=== PATIENT | male | born 1930 | race Caucasian/White ===

== ENCOUNTER 2016-06-24 04:03 | Outpatient (CLI) | payer MEDICARE, OTHER | END 2016-06-24 04:04 | disposition critical access hospital (66) | DX: M25.551 Pain in right hip (principal); S09.90XA Unspecified injury of head, initial encounter; W18.30XA Fall on same level, unspecified, initial encounter; Y92.199 Unspecified place in other specified residential institution as the place of occurrence of the external cause | CPT/HCPCS: A0425; A0427 ==

== ENCOUNTER 2016-06-24 04:19 | Inpatient (IN) | payer MEDICARE, OTHER ==
[2016-06-24] MEDS ORDERED: MORPHINE 2 MG/ML SYRINGE IVP STA (04:31)
[2016-06-24] MEDS ORDERED: MORPHINE 2 MG/ML SYRINGE ONE (05:02)
[2016-06-24] MEDS ORDERED: SODIUM CHLORIDE FLUSH 0.9% 10 ML SYRINGE IVP PRN ×2 (06:29→07:33)
[2016-06-24] MEDS ORDERED: MORPHINE 2 MG/ML SYRINGE IVP PRN (06:29)
[2016-06-24] MEDS ORDERED: ONDANSETRON 4 MG/2 ML VIAL IVP PRN ×2 (06:29→07:33)
[2016-06-24] MEDS ORDERED: NS W/20 MEQ KCL 1,000 ML IV SCH (07:00)
[2016-06-24] MEDS: NS W/20 MEQ KCL 1,000 ML IV SCH ×2 (08:34→19:32)
[2016-06-24] MEDS ORDERED: POLYETHYLENE GLYCOL 3350 17 GM PACKET PO SCH (09:00)
[2016-06-24] MEDS: MORPHINE 2 MG/ML SYRINGE IVP PRN ×5 (10:29→19:32)
[2016-06-24] MEDS: ENALAPRILAT 1.25 MG/ML VIAL IVP SCH ×3 (10:31→15:48)
[2016-06-24] MEDS: POLYETHYLENE GLYCOL 3350 17 GM PACKET PO SCH (10:31)
[2016-06-24] MEDS: SODIUM CHLORIDE FLUSH 0.9% 10 ML SYRINGE IVP SCH ×2 (13:11→21:26)
[2016-06-24] MEDS ORDERED: SODIUM CHLORIDE FLUSH 0.9% 10 ML SYRINGE IVP SCH (14:00)
[2016-06-24] MEDS ORDERED: ACETAMINOPHEN 325 MG TABLET PO PRN (15:57)
[2016-06-24] MEDS: amLODIPine 5 MG TABLET PO SCH (21:26)
[2016-06-25] MEDS: MORPHINE 2 MG/ML SYRINGE IVP PRN ×6 (00:09→23:48)
[2016-06-25] MEDS: ENALAPRILAT 1.25 MG/ML VIAL IVP SCH ×5 (00:10→23:36)
[2016-06-25] MEDS: SODIUM CHLORIDE FLUSH 0.9% 10 ML SYRINGE IVP SCH ×3 (05:53→21:36)
[2016-06-25] MEDS: amLODIPine 5 MG TABLET PO SCH (08:01)
[2016-06-25] MEDS: POLYETHYLENE GLYCOL 3350 17 GM PACKET PO SCH (08:01)
[2016-06-25] MEDS: NS W/20 MEQ KCL 1,000 ML IV SCH (08:06)
[2016-06-25] MEDS: SERTRALINE 25 MG TABLET PO SCH (08:45)
[2016-06-25] MEDS ORDERED: ACETAMINOPHEN 650 MG SUPP PR PRN (16:20)
[2016-06-25] MEDS ORDERED: FUROSEMIDE 20 MG/2 ML VIAL IVP SCH (19:00)
[2016-06-26] MEDS: ENALAPRILAT 1.25 MG/ML VIAL IVP SCH ×3 (06:11→19:21)
[2016-06-26] MEDS: MORPHINE 2 MG/ML SYRINGE IVP PRN ×3 (06:16→20:04)
[2016-06-26] MEDS: SODIUM CHLORIDE FLUSH 0.9% 10 ML SYRINGE IVP SCH ×3 (06:16→20:08)
[2016-06-26] MEDS: POLYETHYLENE GLYCOL 3350 17 GM PACKET PO SCH (08:54)
[2016-06-26] MEDS: SERTRALINE 25 MG TABLET PO SCH (08:55)
[2016-06-26] MEDS: amLODIPine 5 MG TABLET PO SCH (08:55)
[2016-06-27] MEDS: ENALAPRILAT 1.25 MG/ML VIAL IVP SCH ×3 (01:14→17:45)
[2016-06-27] MEDS: MORPHINE 2 MG/ML SYRINGE IVP PRN (05:30)
[2016-06-27] MEDS: SODIUM CHLORIDE FLUSH 0.9% 10 ML SYRINGE IVP SCH ×6 (05:31→22:12)
[2016-06-27] MEDS ORDERED: FUROSEMIDE 40 MG/4 ML VIAL IVP STA (07:27)
[2016-06-27] MEDS ORDERED: LACTATED RINGERS 1,000 ML IV ONE ×2 (08:10→09:33)
[2016-06-27] MEDS ORDERED: GLYCOPYRROLATE 1 MG/5 ML VIAL IVP ONE (08:20)
[2016-06-27] MEDS ORDERED: LIDOCAINE-MPF 2% 5 ML VIAL IM ONE (08:20)
[2016-06-27] MEDS ORDERED: fentaNYL 100 MCG/2 ML VIAL IVP ONE (08:20)
[2016-06-27] MEDS ORDERED: TRANEXAMIC ACID 1,000 MG/10 ML VIAL IV ONE (08:20)
[2016-06-27] MEDS ORDERED: PROPOFOL 200 MG/20 ML VIAL IVP ONE (08:20)
[2016-06-27] MEDS ORDERED: SODIUM CHLORIDE 0.9% 10 ML VIAL IV ONE (08:20)
[2016-06-27] MEDS ORDERED: ONDANSETRON 4 MG/2 ML VIAL IVP ONE (08:20)
[2016-06-27] MEDS ORDERED: MIDAZOLAM 2 MG/2 ML VIAL IVP ONE (08:20)
[2016-06-27] MEDS ORDERED: DEXAMETHASONE 4 MG/ML VIAL IVP ONE (08:20)
[2016-06-27] MEDS ORDERED: PHENYLEPHRINE 50 MG/5 ML VIAL IV ONE (08:20)
[2016-06-27] MEDS ORDERED: BUPIVACAINE 0.5%-EPI 1:200000 PF 10 ML VIAL SUBQ ONE ×2 (08:46→09:33)
[2016-06-27] MEDS ORDERED: ACETAMINOPHEN 325 MG TABLET PO PRN (09:49)
[2016-06-27] MEDS ORDERED: ONDANSETRON 4 MG/2 ML VIAL IVP PRN (09:49)
[2016-06-27] MEDS ORDERED: BISACODYL 10 MG SUPP PR PRN (09:49)
[2016-06-27] MEDS ORDERED: SODIUM CHLORIDE FLUSH 0.9% 10 ML SYRINGE IVP PRN (09:49)
[2016-06-27] MEDS ORDERED: SENNA 8.6 MG TABLET PO PRN (09:49)
[2016-06-27] MEDS ORDERED: SODIUM CHLORIDE 0.45% 1,000 ML IV SCH (10:00)
[2016-06-27] MEDS: SERTRALINE 25 MG TABLET PO SCH (11:06)
[2016-06-27] MEDS: POLYETHYLENE GLYCOL 3350 17 GM PACKET PO SCH (11:07)
[2016-06-27] MEDS: amLODIPine 5 MG TABLET PO SCH (11:08)
[2016-06-27] MEDS: HYDROcod/ACETAM 5/325 MG TABLET PO PRN (17:45)
[2016-06-27] MEDS: ceFAZolin 2 GM/50 ML 50 ML IV SCH (17:46)
[2016-06-27] MEDS ORDERED: SODIUM CHLORIDE 0.9% 250 ML IV ONE (17:57)
[2016-06-28] MEDS: HYDROcod/ACETAM 5/325 MG TABLET PO PRN ×4 (00:32→17:20)
[2016-06-28] MEDS: ENALAPRILAT 1.25 MG/ML VIAL IVP SCH ×4 (00:35→18:48)
[2016-06-28] MEDS: ceFAZolin 2 GM/50 ML 50 ML IV SCH (02:00)
[2016-06-28] MEDS ORDERED: LACTULOSE 10 GM /15 ML UDC PO ONE (05:55)
[2016-06-28] MEDS: SODIUM CHLORIDE FLUSH 0.9% 10 ML SYRINGE IVP SCH ×5 (06:10→21:56)
[2016-06-28] MEDS: MORPHINE 2 MG/ML SYRINGE IVP PRN (06:21)
[2016-06-28] MEDS ORDERED: FUROSEMIDE 40 MG/4 ML VIAL IVP SCH (09:00)
[2016-06-28] MEDS: ENOXAPARIN 30 MG/0.3 ML SYRINGE SUBQ SCH (09:44)
[2016-06-28] MEDS: POLYETHYLENE GLYCOL 3350 17 GM PACKET PO SCH (09:45)
[2016-06-28] MEDS: amLODIPine 5 MG TABLET PO SCH (09:46)
[2016-06-28] MEDS: SERTRALINE 25 MG TABLET PO SCH (09:46)
[2016-06-29] MEDS: HYDROcod/ACETAM 5/325 MG TABLET PO PRN ×4 (01:39→13:47)
[2016-06-29] MEDS: SODIUM CHLORIDE FLUSH 0.9% 10 ML SYRINGE IVP SCH ×6 (06:34→20:54)
[2016-06-29] MEDS: SENNA 8.6 MG TABLET PO SCH (09:31)
[2016-06-29] MEDS: DOCUSATE SODIUM 250 MG CAPSULE PO SCH (09:32)
[2016-06-29] MEDS: ASPIRIN EC 81 MG TABLET PO SCH (09:32)
[2016-06-29] MEDS: amLODIPine 5 MG TABLET PO SCH (09:32)
[2016-06-29] MEDS: FERROUS GLUCONATE 324 MG TABLET PO SCH (09:33)
[2016-06-29] MEDS: SERTRALINE 25 MG TABLET PO SCH (09:33)
[2016-06-29] MEDS: ENOXAPARIN 30 MG/0.3 ML SYRINGE SUBQ SCH (09:34)
[2016-06-29] MEDS: POLYETHYLENE GLYCOL 3350 17 GM PACKET PO SCH (09:34)
[2016-06-29] MEDS: CLOPIDOGREL 75 MG TABLET PO SCH (09:34)
[2016-06-29] MEDS ORDERED: BISACODYL 10 MG SUPP PR ONE (09:46)
[2016-06-29] MEDS: MORPHINE 2 MG/ML SYRINGE IVP PRN (10:19)
[2016-06-29] MEDS: ATORVASTATIN 40 MG TABLET PO SCH (20:54)
[2016-06-30] MEDS: HYDROcod/ACETAM 5/325 MG TABLET PO PRN ×5 (06:15→22:43)
[2016-06-30] MEDS: SODIUM CHLORIDE FLUSH 0.9% 10 ML SYRINGE IVP SCH ×3 (06:16→20:16)
[2016-06-30] MEDS: SERTRALINE 25 MG TABLET PO SCH (08:28)
[2016-06-30] MEDS: SENNA 8.6 MG TABLET PO SCH (08:29)
[2016-06-30] MEDS: ASPIRIN EC 81 MG TABLET PO SCH (08:29)
[2016-06-30] MEDS: amLODIPine 5 MG TABLET PO SCH (08:30)
[2016-06-30] MEDS: FERROUS GLUCONATE 324 MG TABLET PO SCH (08:31)
[2016-06-30] MEDS: DOCUSATE SODIUM 250 MG CAPSULE PO SCH (08:31)
[2016-06-30] MEDS: CLOPIDOGREL 75 MG TABLET PO SCH (08:32)
[2016-06-30] MEDS: POLYETHYLENE GLYCOL 3350 17 GM PACKET PO SCH (08:32)
[2016-06-30] MEDS: ENOXAPARIN 30 MG/0.3 ML SYRINGE SUBQ SCH (08:39)
[2016-06-30] MEDS ORDERED: KETOROLAC 30 MG/ML VIAL IVP STA (09:50)
[2016-06-30] MEDS: TAMSULOSIN 0.4 MG CAPSULE PO SCH (18:54)
[2016-06-30] MEDS: ATORVASTATIN 40 MG TABLET PO SCH ×3 (20:16→20:21)
[2016-07-01] MEDS: SODIUM CHLORIDE FLUSH 0.9% 10 ML SYRINGE IVP SCH ×2 (06:25→11:50)
[2016-07-01] MEDS: SERTRALINE 25 MG TABLET PO SCH (08:47)
[2016-07-01] MEDS: HYDROcod/ACETAM 5/325 MG TABLET PO PRN ×2 (08:47→11:45)
[2016-07-01] MEDS: ASPIRIN EC 81 MG TABLET PO SCH (08:48)
[2016-07-01] MEDS: CLOPIDOGREL 75 MG TABLET PO SCH (08:48)
[2016-07-01] MEDS: FERROUS GLUCONATE 324 MG TABLET PO SCH (08:49)
[2016-07-01] MEDS: SENNA 8.6 MG TABLET PO SCH (08:49)
[2016-07-01] MEDS: amLODIPine 5 MG TABLET PO SCH (08:49)
[2016-07-01] MEDS: TAMSULOSIN 0.4 MG CAPSULE PO SCH (08:49)
[2016-07-01] MEDS: POLYETHYLENE GLYCOL 3350 17 GM PACKET PO SCH (08:50)
[2016-07-01] MEDS: ENOXAPARIN 30 MG/0.3 ML SYRINGE SUBQ SCH (08:50)
[2016-07-01] MEDS: DOCUSATE SODIUM 250 MG CAPSULE PO SCH (09:00)
== END 2016-07-01 13:00 | DRG 469 ==
PROC: 0SRR01A Replacement of Right Hip Joint, Femoral Surface with Metal Synthetic Substitute, Uncemented, Open Approach (ICD-10-PCS; principal; 2016-06-27 10:25)
DX: S72.011A Unspecified intracapsular fracture of right femur, initial encounter for closed fracture (principal); S72.001A Fracture of unspecified part of neck of right femur, initial encounter for closed fracture; J18.9 Pneumonia, unspecified organism; J81.1 Chronic pulmonary edema; E78.00 Pure hypercholesterolemia, unspecified; H54.7 Unspecified visual loss; N17.9 Acute kidney failure, unspecified; R33.9 Retention of urine, unspecified; F03.90 Unspecified dementia, unspecified severity, without behavioral disturbance, psychotic disturbance, mood disturbance, and anxiety; I25.10 Atherosclerotic heart disease of native coronary artery without angina pectoris; W19.XXXA Unspecified fall, initial encounter; I73.9 Peripheral vascular disease, unspecified; L97.529 Non-pressure chronic ulcer of other part of left foot with unspecified severity; Y92.129 Unspecified place in nursing home as the place of occurrence of the external cause; I10 Essential (primary) hypertension; E78.5 Hyperlipidemia, unspecified; W06.XXXA Fall from bed, initial encounter; Z91.81 History of falling; Z95.1 Presence of aortocoronary bypass graft; Z85.46 Personal history of malignant neoplasm of prostate; Z90.79 Acquired absence of other genital organ(s); Z87.891 Personal history of nicotine dependence; Z72.89 Other problems related to lifestyle; Z79.82 Long term (current) use of aspirin; Z79.891 Long term (current) use of opiate analgesic; Z79.899 Other long term (current) drug therapy; Z79.02 Long term (current) use of antithrombotics/antiplatelets; I25.2 Old myocardial infarction; Y93.9 Activity, unspecified; Y92.193 Bedroom in other specified residential institution as the place of occurrence of the external cause; Y99.9 Unspecified external cause status

== ENCOUNTER 2016-07-01 | Outpatient (CLI) | payer MEDICARE, OTHER | END 2016-07-01 13:09 | DX: Z98.890 Other specified postprocedural states (principal) | CPT/HCPCS: A0425; A0428 ==

== ENCOUNTER 2016-07-22 19:43 | Outpatient (CLI) | payer MEDICARE, OTHER | END 2016-07-22 19:44 | disposition critical access hospital (66) | DX: M25.552 Pain in left hip (principal); M25.551 Pain in right hip; W18.30XA Fall on same level, unspecified, initial encounter; Y92.128 Other place in nursing home as the place of occurrence of the external cause | CPT/HCPCS: A0425; A0427 ==

== ENCOUNTER 2016-07-22 19:47 | Inpatient (IN) | payer MEDICARE, OTHER ==
[2016-07-22] MEDS ORDERED: MORPHINE 2 MG/ML SYRINGE IVP STA (20:24)
[2016-07-22] MEDS ORDERED: MORPHINE 2 MG/ML SYRINGE ONE (20:27)
[2016-07-22] MEDS ORDERED: SODIUM CHLORIDE 0.9% 1,000 ML IV ONE (21:19)
[2016-07-22] MEDS ORDERED: ONDANSETRON 4 MG/2 ML VIAL IVP PRN (21:35)
[2016-07-22] MEDS ORDERED: TEMAZEPAM 15 MG CAPSULE PO PRN (21:35)
[2016-07-22] MEDS ORDERED: HYDROcod/ACETAM 5/325 MG TABLET PO PRN (21:35)
[2016-07-22] MEDS ORDERED: ACETAMINOPHEN 325 MG TABLET PO PRN (21:35)
[2016-07-22] MEDS ORDERED: ACETAMINOPHEN 1,000 MG/100 ML 100 ML IV STA (21:58)
[2016-07-22] MEDS ORDERED: SODIUM CHLORIDE 0.9% 1,000 ML IV SCH (22:00)
[2016-07-22] MEDS ORDERED: ACETAMINOPHEN 1,000 MG/100 ML 100 ML IV ONE (22:01)
[2016-07-22] MEDS: SODIUM CHLORIDE FLUSH 0.9% 10 ML SYRINGE IVP SCH (22:26)
[2016-07-22] MEDS: MORPHINE 2 MG/ML SYRINGE IVP PRN (22:26)
[2016-07-22] MEDS: LIDOCAINE PATCH 5% TOP SCH (22:31)
[2016-07-23] MEDS: cefTRIAXone 1 GM in SODIUM CHLORIDE 0.9% MINIBAG 100 ML IV SCH ×2 (00:09→09:01)
[2016-07-23] MEDS: ACETAMINOPHEN 1,000 MG/100 ML 100 ML IV SCH ×4 (03:20→21:19)
[2016-07-23] MEDS ORDERED: SODIUM CHLORIDE 0.9% 1,000 ML IV ONE ×2 (05:03→12:37)
[2016-07-23] MEDS: SODIUM CHLORIDE FLUSH 0.9% 10 ML SYRINGE IVP SCH ×3 (05:12→21:20)
[2016-07-23] MEDS: PANTOPRAZOLE 40 MG TABLET PO SCH (06:21)
[2016-07-23] MEDS ORDERED: TAMSULOSIN 0.4 MG CAPSULE PO SCH (09:00)
[2016-07-23] MEDS ORDERED: SERTRALINE HCL 75 MG PO SCH (09:00)
[2016-07-23] MEDS: POLYETHYLENE GLYCOL 3350 17 GM PACKET PO SCH (09:00)
[2016-07-23] MEDS ORDERED: FERROUS GLUCONATE 324 MG PO SCH (09:00)
[2016-07-23] MEDS: FERROUS GLUCONATE 324 MG TABLET PO SCH ×2 (09:00→09:06)
[2016-07-23] MEDS: SERTRALINE 25 MG TABLET PO SCH (09:00)
[2016-07-23] MEDS: ENOXAPARIN 40 MG/0.4 ML SYRINGE SUBQ SCH (09:00)
[2016-07-23] MEDS: TAMSULOSIN 0.4 MG CAPSULE PO SCH (09:02)
[2016-07-23] MEDS: MORPHINE 2 MG/ML SYRINGE IVP PRN ×2 (11:14→15:44)
[2016-07-23] MEDS ORDERED: SODIUM CHLORIDE 0.9% 1,000 ML IV SCH (15:00)
[2016-07-23] MEDS: SODIUM CHLORIDE FLUSH 0.9% 10 ML SYRINGE IVP PRN (15:45)
[2016-07-23] MEDS: oxyCODONE 5 MG TABLET PO PRN (21:18)
[2016-07-23] MEDS: ATORVASTATIN 40 MG TABLET PO SCH (21:18)
[2016-07-23] MEDS: LIDOCAINE PATCH 5% TOP SCH (21:19)
[2016-07-24] MEDS: MORPHINE 2 MG/ML SYRINGE IVP PRN ×5 (01:28→17:42)
[2016-07-24] MEDS: SODIUM CHLORIDE FLUSH 0.9% 10 ML SYRINGE IVP PRN ×3 (01:28→21:16)
[2016-07-24] MEDS: ACETAMINOPHEN 1,000 MG/100 ML 100 ML IV SCH ×4 (03:38→21:16)
[2016-07-24] MEDS: PANTOPRAZOLE 40 MG TABLET PO SCH (06:16)
[2016-07-24] MEDS: SODIUM CHLORIDE FLUSH 0.9% 10 ML SYRINGE IVP SCH ×3 (06:26→17:44)
[2016-07-24] MEDS ORDERED: BISACODYL 10 MG SUPP PR PRN (07:40)
[2016-07-24] MEDS: POLYETHYLENE GLYCOL 3350 17 GM PACKET PO SCH (08:36)
[2016-07-24] MEDS: TAMSULOSIN 0.4 MG CAPSULE PO SCH (08:36)
[2016-07-24] MEDS: SERTRALINE 25 MG TABLET PO SCH (08:36)
[2016-07-24] MEDS: DOCUSATE SODIUM 250 MG CAPSULE PO SCH (08:36)
[2016-07-24] MEDS: FERROUS GLUCONATE 324 MG TABLET PO SCH (08:36)
[2016-07-24] MEDS: cefTRIAXone 1 GM in SODIUM CHLORIDE 0.9% MINIBAG 100 ML IV SCH (08:37)
[2016-07-24] MEDS: SENNA 8.6 MG TABLET PO SCH (08:37)
[2016-07-24] MEDS: ENOXAPARIN 40 MG/0.4 ML SYRINGE SUBQ SCH (08:37)
[2016-07-24] MEDS ORDERED: ASPIRIN 325 MG TABLET PO SCH (13:00)
[2016-07-24] MEDS ORDERED: MAGNESIUM HYDROXIDE 2,400 MG/30 ML UDC PO ONE (21:00)
[2016-07-24] MEDS: ATORVASTATIN 40 MG TABLET PO SCH (21:16)
[2016-07-24] MEDS: LIDOCAINE PATCH 5% TOP SCH (21:24)
[2016-07-25] MEDS: MORPHINE 2 MG/ML SYRINGE IVP PRN ×7 (00:15→21:25)
[2016-07-25] MEDS: SODIUM CHLORIDE FLUSH 0.9% 10 ML SYRINGE IVP PRN ×5 (00:16→21:26)
[2016-07-25] MEDS: ACETAMINOPHEN 1,000 MG/100 ML 100 ML IV SCH ×4 (03:05→20:26)
[2016-07-25] MEDS: SODIUM CHLORIDE FLUSH 0.9% 10 ML SYRINGE IVP SCH ×4 (06:03→20:29)
[2016-07-25] MEDS: PANTOPRAZOLE 40 MG TABLET PO SCH (06:03)
[2016-07-25] MEDS: ENOXAPARIN 40 MG/0.4 ML SYRINGE SUBQ SCH (09:23)
[2016-07-25] MEDS: FERROUS GLUCONATE 324 MG TABLET PO SCH (09:23)
[2016-07-25] MEDS: DOCUSATE SODIUM 250 MG CAPSULE PO SCH (09:23)
[2016-07-25] MEDS: SERTRALINE 25 MG TABLET PO SCH (09:24)
[2016-07-25] MEDS: SENNA 8.6 MG TABLET PO SCH (09:24)
[2016-07-25] MEDS: TAMSULOSIN 0.4 MG CAPSULE PO SCH (09:24)
[2016-07-25] MEDS: oxyCODONE 5 MG TABLET PO PRN (09:25)
[2016-07-25] MEDS: POLYETHYLENE GLYCOL 3350 17 GM PACKET PO SCH (09:31)
[2016-07-25] MEDS: ASPIRIN EC 81 MG TABLET PO SCH (09:41)
[2016-07-25] MEDS ORDERED: MIN OIL/DIMETHICON/COCONUT OIL 92 GM TUBE TOP ONE (10:30)
[2016-07-25] MEDS: CEFEPIME 1 GM in SODIUM CHLORIDE 0.9% MINIBAG 100 ML IV SCH (13:57)
[2016-07-25] MEDS ORDERED: CEFEPIME 1 GM in SODIUM CHLORIDE 0.9% MINIBAG 100 ML IV SCH (14:00)
[2016-07-25] MEDS ORDERED: PIPERACILLIN/TAZOBACTAM 3.375 GM in SODIUM CHLORIDE 0.9% MINIBAG 100 ML IV SCH (14:00)
[2016-07-25] MEDS ORDERED: LACTULOSE 10 GM /15 ML UDC PO ONE (17:14)
[2016-07-25] MEDS: ATORVASTATIN 40 MG TABLET PO SCH (20:26)
[2016-07-25] MEDS: MIN OIL/DIMETHICON/COCONUT OIL 92 GM TUBE TOP SCH (20:27)
[2016-07-25] MEDS: LIDOCAINE PATCH 5% TOP SCH (21:31)
[2016-07-26] MEDS: MORPHINE 2 MG/ML SYRINGE IVP PRN ×5 (00:11→12:54)
[2016-07-26] MEDS: oxyCODONE 5 MG TABLET PO PRN ×3 (00:12→21:18)
[2016-07-26] MEDS: SODIUM CHLORIDE FLUSH 0.9% 10 ML SYRINGE IVP PRN ×3 (02:28→13:28)
[2016-07-26] MEDS: ACETAMINOPHEN 1,000 MG/100 ML 100 ML IV SCH ×4 (02:28→21:18)
[2016-07-26] MEDS: PANTOPRAZOLE 40 MG TABLET PO SCH (06:10)
[2016-07-26] MEDS ORDERED: ASPIRIN CHEW 81 MG TABLET PO SCH (09:00)
[2016-07-26] MEDS: FERROUS GLUCONATE 324 MG TABLET PO SCH (09:22)
[2016-07-26] MEDS: CEFEPIME 1 GM in SODIUM CHLORIDE 0.9% MINIBAG 100 ML IV SCH (09:22)
[2016-07-26] MEDS: DOCUSATE SODIUM 250 MG CAPSULE PO SCH (09:22)
[2016-07-26] MEDS: TAMSULOSIN 0.4 MG CAPSULE PO SCH (09:23)
[2016-07-26] MEDS: POLYETHYLENE GLYCOL 3350 17 GM PACKET PO SCH (09:23)
[2016-07-26] MEDS: SENNA 8.6 MG TABLET PO SCH (09:23)
[2016-07-26] MEDS: SERTRALINE 25 MG TABLET PO SCH (09:23)
[2016-07-26] MEDS: MIN OIL/DIMETHICON/COCONUT OIL 92 GM TUBE TOP SCH ×2 (09:46→21:19)
[2016-07-26] MEDS: ASPIRIN EC 81 MG TABLET PO SCH (09:52)
[2016-07-26] MEDS: ENOXAPARIN 40 MG/0.4 ML SYRINGE SUBQ SCH (09:52)
[2016-07-26] MEDS ORDERED: FUROSEMIDE 40 MG/4 ML VIAL IVP STA (13:24)
[2016-07-26] MEDS: SODIUM CHLORIDE FLUSH 0.9% 10 ML SYRINGE IVP SCH ×2 (14:09→21:19)
[2016-07-26] MEDS ORDERED: ACETAMINOPHEN 500 MG TABLET PO PRN (15:30)
[2016-07-26] MEDS ORDERED: FUROSEMIDE 40 MG/4 ML VIAL IVP PRN (15:30)
[2016-07-26] MEDS ORDERED: SODIUM CHLORIDE 0.45% 500 ML IV SCH (17:00)
[2016-07-26] MEDS ORDERED: FLUCONAZOLE 200 MG/100 ML 100 ML IV ONE (18:00)
[2016-07-26] MEDS: ATORVASTATIN 40 MG TABLET PO SCH (21:18)
[2016-07-26] MEDS: LIDOCAINE PATCH 5% TOP SCH (21:19)
[2016-07-26] MEDS ORDERED: BISACODYL 10 MG SUPP PR SCH (21:32)
[2016-07-27] MEDS: SODIUM CHLORIDE FLUSH 0.9% 10 ML SYRINGE IVP PRN ×2 (02:50→07:41)
[2016-07-27] MEDS: MORPHINE 2 MG/ML SYRINGE IVP PRN ×2 (02:50→05:58)
[2016-07-27] MEDS: ACETAMINOPHEN 1,000 MG/100 ML 100 ML IV SCH ×4 (02:50→21:45)
[2016-07-27] MEDS: SODIUM CHLORIDE FLUSH 0.9% 10 ML SYRINGE IVP SCH ×3 (05:57→21:45)
[2016-07-27] MEDS: PANTOPRAZOLE 40 MG TABLET PO SCH (06:03)
[2016-07-27] MEDS: DEXTROSE 5%-0.45% NACL 1,000 ML IV SCH (07:40)
[2016-07-27] MEDS ORDERED: LACTATED RINGERS 1,000 ML IV ONE ×3 (08:00→11:21)
[2016-07-27] MEDS ORDERED: MIDAZOLAM 2 MG/2 ML VIAL IVP ONE (08:30)
[2016-07-27] MEDS ORDERED: ceFAZolin 1 GM VIAL IV ONE (08:30)
[2016-07-27] MEDS ORDERED: ONDANSETRON 4 MG/2 ML VIAL IVP ONE (08:30)
[2016-07-27] MEDS ORDERED: KETOROLAC 30 MG/ML VIAL IVP ONE (08:30)
[2016-07-27] MEDS ORDERED: DEXAMETHASONE 4 MG/ML VIAL IVP ONE (08:30)
[2016-07-27] MEDS ORDERED: SODIUM CHLORIDE 0.9% 10 ML VIAL IV ONE (08:30)
[2016-07-27] MEDS ORDERED: PROPOFOL 200 MG/20 ML VIAL IVP ONE (08:30)
[2016-07-27] MEDS ORDERED: MORPHINE PF 5 MG/10 ML AMP EP ONE (08:30)
[2016-07-27] MEDS ORDERED: GLYCOPYRROLATE 1 MG/5 ML VIAL IVP ONE (08:30)
[2016-07-27] MEDS ORDERED: PHENYLEPHRINE 50 MG/5 ML VIAL IV ONE (08:30)
[2016-07-27] MEDS ORDERED: ROCURONIUM 50 MG/5 ML VIAL IVP ONE (08:30)
[2016-07-27] MEDS ORDERED: ePHEDrine 50 MG/ML VIAL IVP ONE (08:30)
[2016-07-27] MEDS ORDERED: fentaNYL 100 MCG/2 ML VIAL IVP ONE (08:30)
[2016-07-27] MEDS ORDERED: LIDOCAINE-MPF 2% 5 ML VIAL IM ONE (08:30)
[2016-07-27] MEDS ORDERED: SUCCINYLCHOLINE 200 MG/10 ML VIAL IVP ONE (08:30)
[2016-07-27] MEDS ORDERED: EPINEPHrine 1 MG/ML AMP IVP ONE (08:40)
[2016-07-27] MEDS ORDERED: MORPHINE PF 5 MG/10 ML AMP SUBQ ONE (08:40)
[2016-07-27] MEDS ORDERED: KETOROLAC 15 MG/ML VIAL IVP ONE (08:40)
[2016-07-27] MEDS ORDERED: ROPIVACAINE 0.2% PF 20 ML AMPULE SUBQ ONE (08:40)
[2016-07-27] MEDS: ASPIRIN EC 81 MG TABLET PO SCH (09:47)
[2016-07-27] MEDS: DOCUSATE SODIUM 250 MG CAPSULE PO SCH (09:48)
[2016-07-27] MEDS: CEFEPIME 1 GM in SODIUM CHLORIDE 0.9% MINIBAG 100 ML IV SCH (09:48)
[2016-07-27] MEDS: ENOXAPARIN 40 MG/0.4 ML SYRINGE SUBQ SCH (09:48)
[2016-07-27] MEDS: FERROUS GLUCONATE 324 MG TABLET PO SCH (09:48)
[2016-07-27] MEDS: TAMSULOSIN 0.4 MG CAPSULE PO SCH (09:49)
[2016-07-27] MEDS: MIN OIL/DIMETHICON/COCONUT OIL 92 GM TUBE TOP SCH ×2 (09:49→21:46)
[2016-07-27] MEDS: SENNA 8.6 MG TABLET PO SCH (09:49)
[2016-07-27] MEDS: SERTRALINE 25 MG TABLET PO SCH (09:49)
[2016-07-27] MEDS: POLYETHYLENE GLYCOL 3350 17 GM PACKET PO SCH (09:49)
[2016-07-27] MEDS ORDERED: SODIUM CHLORIDE 0.9% 1,000 ML IV ONE (10:17)
[2016-07-27] MEDS: fentaNYL 100 MCG/2 ML VIAL ONE ×5 (12:11→13:49)
[2016-07-27] MEDS: oxyCODONE 5 MG TABLET PO PRN (17:07)
[2016-07-27] MEDS: ATORVASTATIN 40 MG TABLET PO SCH (21:45)
[2016-07-27] MEDS: LIDOCAINE PATCH 5% TOP SCH (21:46)
[2016-07-28] MEDS: oxyCODONE 5 MG TABLET PO PRN ×4 (01:18→17:59)
[2016-07-28] MEDS: DEXTROSE 5%-0.45% NACL 1,000 ML IV SCH ×2 (01:18→17:11)
[2016-07-28] MEDS: ACETAMINOPHEN 1,000 MG/100 ML 100 ML IV SCH ×4 (02:03→21:02)
[2016-07-28] MEDS: SODIUM CHLORIDE FLUSH 0.9% 10 ML SYRINGE IVP SCH ×3 (07:49→21:06)
[2016-07-28] MEDS: KETOROLAC 15 MG/ML VIAL IVP PRN ×3 (10:01→21:05)
[2016-07-28] MEDS: SODIUM CHLORIDE FLUSH 0.9% 10 ML SYRINGE IVP PRN (10:01)
[2016-07-28] MEDS: ENOXAPARIN 30 MG/0.3 ML SYRINGE SUBQ SCH (10:04)
[2016-07-28] MEDS: FERROUS GLUCONATE 324 MG TABLET PO SCH (10:05)
[2016-07-28] MEDS: SERTRALINE 25 MG TABLET PO SCH (10:05)
[2016-07-28] MEDS: ASPIRIN EC 81 MG TABLET PO SCH (10:05)
[2016-07-28] MEDS: SENNA 8.6 MG TABLET PO SCH (10:05)
[2016-07-28] MEDS: CALCIUM CARBONATE CHEW 500 MG TABLET PO SCH ×2 (10:06→21:07)
[2016-07-28] MEDS: DOCUSATE SODIUM 250 MG CAPSULE PO SCH (10:06)
[2016-07-28] MEDS: PANTOPRAZOLE 40 MG TABLET PO SCH (10:06)
[2016-07-28] MEDS: POLYETHYLENE GLYCOL 3350 17 GM PACKET PO SCH (10:07)
[2016-07-28] MEDS: TAMSULOSIN 0.4 MG CAPSULE PO SCH (10:07)
[2016-07-28] MEDS: CEFEPIME 1 GM in SODIUM CHLORIDE 0.9% MINIBAG 100 ML IV SCH (10:08)
[2016-07-28] MEDS: MIN OIL/DIMETHICON/COCONUT OIL 92 GM TUBE TOP SCH ×2 (10:14→21:11)
[2016-07-28] MEDS: ATORVASTATIN 40 MG TABLET PO SCH (21:08)
[2016-07-28] MEDS: LIDOCAINE PATCH 5% TOP SCH (21:17)
[2016-07-29] MEDS: KETOROLAC 15 MG/ML VIAL IVP PRN ×4 (01:12→17:11)
[2016-07-29] MEDS: ACETAMINOPHEN 1,000 MG/100 ML 100 ML IV SCH ×4 (02:47→21:38)
[2016-07-29] MEDS: DEXTROSE 5%-0.45% NACL 1,000 ML IV SCH (04:55)
[2016-07-29] MEDS: SODIUM CHLORIDE FLUSH 0.9% 10 ML SYRINGE IVP SCH ×3 (05:08→21:38)
[2016-07-29] MEDS: PANTOPRAZOLE 40 MG TABLET PO SCH (06:27)
[2016-07-29] MEDS: SODIUM CHLORIDE FLUSH 0.9% 10 ML SYRINGE IVP PRN ×2 (09:52→17:12)
[2016-07-29] MEDS: POLYETHYLENE GLYCOL 3350 17 GM PACKET PO SCH (09:54)
[2016-07-29] MEDS: ENOXAPARIN 30 MG/0.3 ML SYRINGE SUBQ SCH (09:55)
[2016-07-29] MEDS: oxyCODONE 5 MG TABLET PO PRN ×4 (09:56→21:35)
[2016-07-29] MEDS: ASPIRIN EC 81 MG TABLET PO SCH (09:57)
[2016-07-29] MEDS: SERTRALINE 25 MG TABLET PO SCH (09:57)
[2016-07-29] MEDS: CHOLECALCIFEROL 1,000 UNIT TABLET PO SCH (09:58)
[2016-07-29] MEDS: TAMSULOSIN 0.4 MG CAPSULE PO SCH (09:58)
[2016-07-29] MEDS: DOCUSATE SODIUM 250 MG CAPSULE PO SCH (09:58)
[2016-07-29] MEDS: SENNA 8.6 MG TABLET PO SCH ×2 (09:58→21:43)
[2016-07-29] MEDS: CEFEPIME 1 GM in SODIUM CHLORIDE 0.9% MINIBAG 100 ML IV SCH (09:59)
[2016-07-29] MEDS: CALCIUM CARBONATE CHEW 500 MG TABLET PO SCH ×2 (09:59→21:38)
[2016-07-29] MEDS: MIN OIL/DIMETHICON/COCONUT OIL 92 GM TUBE TOP SCH ×2 (10:00→21:45)
[2016-07-29] MEDS: FERROUS SULFATE 325 MG TABLET PO SCH (17:12)
[2016-07-29] MEDS ORDERED: MAGNESIUM HYDROXIDE 2,400 MG/30 ML UDC PO ONE (21:00)
[2016-07-29] MEDS: LIDOCAINE PATCH 5% TOP SCH (21:29)
[2016-07-29] MEDS: ATORVASTATIN 40 MG TABLET PO SCH (21:35)
[2016-07-30] MEDS: SENNA 8.6 MG TABLET PO SCH ×3 (03:53→08:50)
[2016-07-30] MEDS: ACETAMINOPHEN 1,000 MG/100 ML 100 ML IV SCH ×2 (03:54→08:41)
[2016-07-30] MEDS: KETOROLAC 15 MG/ML VIAL IVP PRN ×2 (06:12→08:47)
[2016-07-30] MEDS: SODIUM CHLORIDE FLUSH 0.9% 10 ML SYRINGE IVP SCH (06:12)
[2016-07-30] MEDS: PANTOPRAZOLE 40 MG TABLET PO SCH (06:12)
[2016-07-30] MEDS: ENOXAPARIN 30 MG/0.3 ML SYRINGE SUBQ SCH (08:41)
[2016-07-30] MEDS: SODIUM CHLORIDE FLUSH 0.9% 10 ML SYRINGE IVP PRN (08:41)
[2016-07-30] MEDS: SERTRALINE 25 MG TABLET PO SCH (08:48)
[2016-07-30] MEDS: CHOLECALCIFEROL 1,000 UNIT TABLET PO SCH (08:48)
[2016-07-30] MEDS: ASPIRIN EC 81 MG TABLET PO SCH (08:48)
[2016-07-30] MEDS: DOCUSATE SODIUM 250 MG CAPSULE PO SCH (08:48)
[2016-07-30] MEDS: CALCIUM CARBONATE CHEW 500 MG TABLET PO SCH (08:51)
[2016-07-30] MEDS: TAMSULOSIN 0.4 MG CAPSULE PO SCH (08:51)
[2016-07-30] MEDS: POLYETHYLENE GLYCOL 3350 17 GM PACKET PO SCH (08:51)
[2016-07-30] MEDS: oxyCODONE 5 MG TABLET PO PRN (08:51)
[2016-07-30] MEDS: MIN OIL/DIMETHICON/COCONUT OIL 92 GM TUBE TOP SCH (08:52)
[2016-07-30] MEDS: FERROUS SULFATE 325 MG TABLET PO SCH (08:52)
[2016-07-30] MEDS ORDERED: MORPHINE 10 MG/ML VIAL IM SCH (11:03)
== END 2016-07-30 11:20 | DRG 466 ==
DX: M97.01XA Periprosthetic fracture around internal prosthetic right hip joint, initial encounter (principal); S72.012A Unspecified intracapsular fracture of left femur, initial encounter for closed fracture; M96.810 Intraoperative hemorrhage and hematoma of a musculoskeletal structure complicating a musculoskeletal system procedure; D62 Acute posthemorrhagic anemia; N17.9 Acute kidney failure, unspecified; N39.0 Urinary tract infection, site not specified; L97.419 Non-pressure chronic ulcer of right heel and midfoot with unspecified severity; I73.9 Peripheral vascular disease, unspecified; E78.00 Pure hypercholesterolemia, unspecified; R50.84 Febrile nonhemolytic transfusion reaction; B96.5 Pseudomonas (aeruginosa) (mallei) (pseudomallei) as the cause of diseases classified elsewhere; R33.9 Retention of urine, unspecified; I95.9 Hypotension, unspecified; Y83.8 Other surgical procedures as the cause of abnormal reaction of the patient, or of later complication, without mention of misadventure at the time of the procedure; W18.39XA Other fall on same level, initial encounter; F03.90 Unspecified dementia, unspecified severity, without behavioral disturbance, psychotic disturbance, mood disturbance, and anxiety; I11.9 Hypertensive heart disease without heart failure; K21.9 Gastro-esophageal reflux disease without esophagitis; I25.10 Atherosclerotic heart disease of native coronary artery without angina pectoris; Z95.820 Peripheral vascular angioplasty status with implants and grafts; Y92.129 Unspecified place in nursing home as the place of occurrence of the external cause; Y99.9 Unspecified external cause status; S09.90XA Unspecified injury of head, initial encounter; D50.9 Iron deficiency anemia, unspecified; F32.9 Major depressive disorder, single episode, unspecified; E78.5 Hyperlipidemia, unspecified; H54.7 Unspecified visual loss; I45.81 Long QT syndrome; Z91.81 History of falling; Y93.89 Activity, other specified; Y92.128 Other place in nursing home as the place of occurrence of the external cause; Y99.8 Other external cause status; Y92.234 Operating room of hospital as the place of occurrence of the external cause; Z95.1 Presence of aortocoronary bypass graft; I25.2 Old myocardial infarction; Z79.02 Long term (current) use of antithrombotics/antiplatelets; Z79.82 Long term (current) use of aspirin; Z79.891 Long term (current) use of opiate analgesic; Z79.899 Other long term (current) drug therapy; Z86.711 Personal history of pulmonary embolism; Z87.891 Personal history of nicotine dependence; Z85.46 Personal history of malignant neoplasm of prostate; Z90.79 Acquired absence of other genital organ(s); Z66 Do not resuscitate

== ENCOUNTER 2016-07-30 10:49 | Outpatient (CLI) | payer MEDICARE, OTHER | END 2016-07-30 10:50 | DX: S72.002D Fracture of unspecified part of neck of left femur, subsequent encounter for closed fracture with routine healing (principal) | CPT/HCPCS: A0425; A0428 ==

== ENCOUNTER 2016-08-01 12:27 | Outpatient (CLI) | payer MEDICARE, OTHER | END 2016-08-01 12:28 | disposition home or self-care (01) | DX: D50.9 Iron deficiency anemia, unspecified (principal) ==

== ENCOUNTER 2016-08-14 14:38 | Outpatient (CLI) | payer MEDICARE, OTHER | END 2016-08-14 14:39 | disposition home or self-care (01) | DX: D50.9 Iron deficiency anemia, unspecified (principal) ==

== ENCOUNTER 2016-08-28 06:24 | Inpatient (IN) | payer MEDICARE, OTHER ==
[2016-08-28] MEDS ORDERED: ceFAZolin 2 GM/50 ML 50 ML IV ONE (06:35)
[2016-08-28] MEDS ORDERED: LACTATED RINGERS 1,000 ML IV ONE ×3 (07:17→11:25)
[2016-08-28] MEDS ORDERED: PROPOFOL 200 MG/20 ML VIAL IVP ONE (08:57)
[2016-08-28] MEDS ORDERED: DEXAMETHASONE 4 MG/ML VIAL IVP ONE (08:57)
[2016-08-28] MEDS ORDERED: LIDOCAINE-MPF 2% 5 ML VIAL IM ONE (08:57)
[2016-08-28] MEDS ORDERED: ePHEDrine 50 MG/ML AMP IVP ONE (08:57)
[2016-08-28] MEDS ORDERED: GLYCOPYRROLATE 1 MG/5 ML VIAL IVP ONE (08:57)
[2016-08-28] MEDS ORDERED: MIDAZOLAM 2 MG/2 ML VIAL IVP ONE (08:57)
[2016-08-28] MEDS ORDERED: PHENYLEPHRINE 50 MG/5 ML VIAL IV ONE (08:57)
[2016-08-28] MEDS ORDERED: fentaNYL 250 MCG/5 ML VIAL IVP ONE (08:57)
[2016-08-28] MEDS ORDERED: ONDANSETRON 4 MG/2 ML VIAL IVP ONE (08:57)
[2016-08-28] MEDS ORDERED: NEOSTIGMINE 1 MG/1 ML 10 ML MDV IVP ONE (08:57)
[2016-08-28] MEDS ORDERED: MORPHINE PF 5 MG/10 ML AMP EP ONE (08:57)
[2016-08-28] MEDS ORDERED: ROCURONIUM 50 MG/5 ML VIAL IVP ONE (08:57)
[2016-08-28] MEDS ORDERED: ACETAMINOPHEN 1,000 MG/100 ML VIAL IV ONE (08:57)
[2016-08-28] MEDS ORDERED: KETOROLAC 30 MG/ML VIAL IVP ONE (08:57)
[2016-08-28] MEDS ORDERED: SUCCINYLCHOLINE 200 MG/10 ML VIAL IVP ONE (08:57)
[2016-08-28] MEDS ORDERED: ROPIVACAINE 0.2% PF 20 ML AMPULE SUBQ ONE (10:03)
[2016-08-28] MEDS ORDERED: MORPHINE PF 5 MG/10 ML AMP SUBQ ONE (10:03)
[2016-08-28] MEDS ORDERED: BUPIVACAINE 0.5% PF 30 ML VIAL SUBQ ONE (10:03)
[2016-08-28] MEDS ORDERED: KETOROLAC 30 MG/ML VIAL IM ONE (10:03)
[2016-08-28] MEDS ORDERED: EPINEPHrine 1 MG/ML AMP SUBQ ONE (10:05)
[2016-08-28] MEDS ORDERED: DOCUSATE SODIUM 100 MG CAPSULE PO PRN (10:49)
[2016-08-28] MEDS ORDERED: BISACODYL 10 MG SUPP PR PRN (10:49)
[2016-08-28] MEDS ORDERED: BISACODYL 5 MG TABLET PO PRN (10:49)
[2016-08-28] MEDS ORDERED: ONDANSETRON 4 MG/2 ML VIAL IVP PRN (10:49)
[2016-08-28] MEDS ORDERED: SODIUM CHLORIDE FLUSH 0.9% 10 ML SYRINGE IVP PRN (10:49)
[2016-08-28] MEDS ORDERED: PROCHLORPERAZINE 10 MG/2 ML VIAL IVP PRN (10:49)
[2016-08-28] MEDS ORDERED: HYDROmorphone 1 MG/ML SYRINGE IVP PRN (10:49)
--- NOTE | 2016-08-28 10:49 | OPERATIVE REPORT ---
Surgery Post-Op - General Admit Date: 08/28/16 Procedure Date: 08/28/16 Pre-Op Diagnosis: Left Femoral Neck Fracture (Garden IV) Operative Procedure: Left Hip Hemiarthroplasty via anterolateral approach. Post-Op Diagnosis: Same. - Procedure Note Anesthesia Technique: Primary Surgeon: Julio Pinto MD Pathology: Same. Estimated Blood Loss (in cc): 100 Drain/Tube Type: positive: Other (None.) Complications: Fluids: 1800 mL LR. Urine: 75 mL cloudy. Implants: Biomet TaperLoc Femoral Stem: Size 15 x 150 mm Bipolar Head component: 48 mm OD x 28 mm ID. TaperLoc Head: 28 mm x 0 neck Length. Condition: Stable [facility]
[2016-08-28] MEDS: D5.45NS W/20 MEQ KCL 1,000 ML IV SCH ×2 (11:46→22:08)
--- NOTE | 2016-08-28 12:27 | XRAY Report ---
TWO VIEW LEFT HIP: 08/28/2016 CLINICAL INDICATION: Postop left hip replacement. FINDINGS: Frontal and cross-table lateral portable views of the left hip demonstrate a left hip repl acement in place. There is no evidence of fracture or hardware complication. Subcutaneous gas is note d. Previous right hip replacement is noted. IMPRESSION: EXPECTED POSTOPERATIVE APPEARANCE OF LEFT HIP REPLACEMENT. JOB #: [id number] EXT JOB #:[id number]
[2016-08-28] MEDS: SODIUM CHLORIDE FLUSH 0.9% 10 ML SYRINGE IVP SCH ×2 (13:35→20:39)
[2016-08-28 13:51] LABS: HCT - HEMATOCRIT 34.8 % (42.0-52.0); HGB - HEMOGLOBIN 11.2 g/dL (14.0-18.0)
[2016-08-28] MEDS: ceFAZolin 2 GM/50 ML 50 ML IV SCH ×2 (16:14→23:49)
[2016-08-28] MEDS: CALCIUM CARBONATE CHEW 500 MG TABLET PO SCH (20:38)
[2016-08-28] MEDS: TAMSULOSIN 0.4 MG CAPSULE PO SCH (20:38)
[2016-08-28] MEDS: MIRTAZAPINE 15 MG TABLET PO SCH (20:38)
[2016-08-28] MEDS: ATORVASTATIN 40 MG TABLET PO SCH (20:38)
[2016-08-28] MEDS: HYDROcod/ACETAM 5/325 MG TABLET PO PRN (20:39)
[2016-08-29] MEDS: SODIUM CHLORIDE FLUSH 0.9% 10 ML SYRINGE IVP SCH ×3 (05:40→20:38)
[2016-08-29] MEDS: PANTOPRAZOLE 40 MG TABLET PO SCH (06:05)
[2016-08-29] MEDS: POLYETHYLENE GLYCOL 3350 17 GM PACKET PO SCH (08:26)
[2016-08-29] MEDS: CALCIUM CARBONATE CHEW 500 MG TABLET PO SCH ×2 (08:26→20:34)
[2016-08-29] MEDS: MULTIVITAMIN W/MINERALS TABLET PO SCH (08:26)
[2016-08-29] MEDS: SERTRALINE 25 MG TABLET PO SCH (08:26)
[2016-08-29] MEDS: ENOXAPARIN 40 MG/0.4 ML SYRINGE SUBQ SCH (08:26)
[2016-08-29] MEDS: FERROUS GLUCONATE 324 MG TABLET PO SCH (08:27)
[2016-08-29] MEDS: ACETAMINOPHEN 1,000 MG/100 ML 100 ML IV PRN (08:39)
[2016-08-29] MEDS ORDERED: BENZOCAINE/MENTHOL LOZENGE MM PRN (19:46)
[2016-08-29] MEDS: ATORVASTATIN 40 MG TABLET PO SCH (20:34)
[2016-08-29] MEDS: D5.45NS W/20 MEQ KCL 1,000 ML IV SCH (20:34)
[2016-08-29] MEDS: TAMSULOSIN 0.4 MG CAPSULE PO SCH (20:35)
[2016-08-29] MEDS: MIRTAZAPINE 15 MG TABLET PO SCH (20:35)
[2016-08-30] MEDS: ACETAMINOPHEN 325 MG TABLET PO PRN ×2 (00:07→06:28)
[2016-08-30] MEDS: SODIUM CHLORIDE FLUSH 0.9% 10 ML SYRINGE IVP SCH (05:44)
[2016-08-30] MEDS ORDERED: LIDOCAINE JELLY 2% 5 ML TUBE TOP ONE (06:12)
[2016-08-30] MEDS: PANTOPRAZOLE 40 MG TABLET PO SCH (06:28)
[2016-08-30] MEDS: D5.45NS W/20 MEQ KCL 1,000 ML IV SCH ×2 (06:28→06:29)
[2016-08-30 08:43] VITALS: BP 118/69
[2016-08-30] MEDS: ENOXAPARIN 40 MG/0.4 ML SYRINGE SUBQ SCH ×3 (10:54→13:22)
[2016-08-30] MEDS: FERROUS GLUCONATE 324 MG TABLET PO SCH (11:11)
[2016-08-30] MEDS: CALCIUM CARBONATE CHEW 500 MG TABLET PO SCH (11:11)
[2016-08-30] MEDS: SERTRALINE 25 MG TABLET PO SCH (11:11)
[2016-08-30] MEDS: MULTIVITAMIN W/MINERALS TABLET PO SCH (11:11)
[2016-08-30] MEDS: POLYETHYLENE GLYCOL 3350 17 GM PACKET PO SCH (11:11)
[2016-08-30] MEDS: ACETAMINOPHEN 1,000 MG/100 ML 100 ML IV PRN (11:12)
--- NOTE | 2016-08-30 13:00 | Discharge Plan ---
Discharge Plan Disposition: 03 [facility] DC/Xfer Condition: Fair Prescriptions: HYDROcod/ACETAM [[place] ] 1 tab PO Q4HR PRN 10 Days PRN Reason: Pain Diet: Soft Activity Restrictions: Wt Bearing as Tolerated Shower Restrictions: No Driving Restrictions: Yes Assistance Devices: Wheelchair, Walker Weight Bearing: As tolerated Bilateral Follow-Up Care: [facility] - Wound/Ostomy No Smoking: If you smoke, Please STOP! Call for help. Follow-up with: Den Barnett MD [Primary Care Provider] - Julio Pinto MD [Provider Admit Priv/Credential] -
[2016-08-30] MEDS: HYDROcod/ACETAM 5/325 MG TABLET PO PRN (13:17)
--- NOTE | 2016-09-18 09:09 | OPERATIVE REPORT ---
DATE OF SURGERY: 08/28/2016 00:00:00 PREOPERATIVE DIAGNOSIS: Left femoral neck fracture (Garden IV). POSTOPERATIVE DIAGNOSIS: Left femoral neck fracture (Garden IV). NAME OF PROCEDURE: Left hip hemiarthroplasty via an anterolateral approach. ANESTHESIA: General endotracheal. SURGEON: Julio Pinto MD PATHOLOGY: Same. ESTIMATED BLOOD LOSS: 100 mL. DRAINS: None. COMPLICATIONS: None. FLUIDS: 1800 mL of lactated Ringer's. URINE: 70 mL and cloudy. IMPLANTS 1. Biomet Taperloc femoral stem size 15 x 150 mm. 2. Bipolar head component 48 mm outer diameter x 28 mm inner diameter with polyethylene. 3. Taperloc head with a 28 mm x 0 neck length size. CONDITION AT END OF PROCEDURE: Stable. DISPOSITION: PACU, then Med/Surg. INDICATIONS: The patient is an 86-year-old male with a history of dementia who had previously sustain ed a right femoral neck fracture, which had undergone a right hemiarthroplasty procedure. Subsequent to that surgery, he had again fallen sustaining a [place] 3 periprosthetic fracture of his right hi p and a valgus impacted femoral neck fracture of his left hip. We had taken him to the operating room and revised his previous hemiarthroplasty to a revision stem with cerclage wiring. Because of his me dical condition and advanced age, his daughter had decided to forego surgery of his left femur. [facility] in the [facility] period an effort was made to obtain radiographs of the left hip in which he was placed in a frog leg lateral position, which resulted in displacement of his left femoral neck fr acture. For this reason, it was elected to bring him back to the operating room to perform a left hip hemiarthroplasty. PROCEDURE IN DETAIL: After consent and identification, the patient was brought to the operating room and placed in the supine position on the operating table. After induction of a general endotracheal a nesthesia and appropriate monitoring, the patient was placed in a right lateral decubitus position on the PEG board with a well-padded PEG at the ischium, the pubic symphysis, the sacrum and the chest. An axillary roll was placed. Padding was placed underneath the right peroneal nerve. The left hip and lower extremity were then prepped and draped free in the usual sterile hind quarter fashion for hip surgery. After an appropriate timeout was conducted, we made a standard anterolateral approach in direct line with the lateral border of the femur centered over the greater trochanter extending 10 cm proximal an d approximately 8 cm distal to the tip of the greater trochanter. Subcutaneous tissue was divided jenn n to the external fascia of the gluteus laura and medius muscles and the tensor fascia larry and audelia otibial band. We divided the iliotibial band tensor fascia larry and gluteus musculature in line with their fibers. Charnley retractor was positioned. Rongeur was used to remove the bursa. We identified the anterior one-third of the gluteus medius musculature and performed a digastric resection of the a nterior portion of the gluteus medius and anterior portion of the vastus lateralis muscle with a subp eriosteal sleeve over the greater trochanter. This was retracted anteriorly. With hip in externally r otated position, we completed an H-shaped capsulotomy into the femoral neck and head area. Curved Kob er retractors were placed superior and inferior to the neck. With the hip in an externally rotated po sition with the leg placed in a leg bag and the lower leg perpendicular to the floor, we identified t he version of the femoral neck and performed our neck cut with an oscillating saw. The neck cut was c ompleted with an osteotome. This allowed direct approach to the neck and head fragment in the acetabu lum. These were secured with a corkscrew and removed from the acetabulum. The acetabulum was cleaned and irrigated. Digital exploration revealed intact cartilage suitable for hemiarthroplasty. We used a cookie cutter and sounding reamer to lateralize and locate the center of the femoral canal. We then sequentially broached beginning with a size 5 broach and broaching up to a size 15 broach, [facility] gave excellent rotational stability. With the size [address], we trialed a 48 mm x 0 ne ck length bipolar trial component. With the hip in a reduced position, Shuck test was good and rotati onal stability was also good. We used a bone hook to then redislocate the hip and remove the trial co mponents. We opened the size 15 x 150 mm femoral stem and impacted it into the femoral canal with goo d rotational interlock. We assembled the 48 mm outer diameter acetabular shell with a polyethylene in sert and the 28 mm x 0 neck length head. These were then impacted onto the trunnion. We relocated the hip and again performed our rotational and Shuck testing, which were noted to be good. We then irrig ated the hip and sequentially closed by approximating the capsule with #2 FiberWire running interlock ed suture. We reattached the anterior border of the gluteus medius and vastus lateralis muscle sleeve through drill holes in the greater trochanter with #2 FiberWire suture. A running interlocked #1 Fadi ryl suture was used to reapproximate the iliotibial band, the tensor fascia larry, and the fascia over the gluteus. We again irrigated and then closed the subcutaneous layer with interrupted 2-0 Vicryl s ubcuticular sutures. A running 3-0 Monocryl suture was used to approximate the dermis. No drain was p laced. On completion of the procedure, a as well as silver dressing was applied to the wound . The patient was then extubated and transferred to the recovery room in good condition having tolera cecelia surgery well. JOB #: [id number] EXT JOB #:[id number]
--- NOTE | 2016-09-26 08:32 | HISTORY & PHYSICAL EXAMINATION ---
HPI - Admitted From Admitted from: Direct admit - History Obtained From Records Reviewed: Old records reviewed History obtained from: Family Exam limitations: Clinical condition - History of Present Illness Pain/Problem Location Description: Pain in left hip after a ground-level fall with new radiographs indicating Severity at the worst: reports: Moderate Pain Quality: reports: Aching Context-Pain started w/: reports: Movement, Palpation, Position Timing: reports: Abrupt onset Duration: reports: Days: PMH/PSH - Past Medical History Cardiovascular: positive: Hypertension, Coronary artery disease, Peripheral Vascular Disease, Pulmonary embolism Respiratory: positive: None Neuro: positive: Dementia Endocrine/Autoimmune: positive: None GI: positive: None : positive: Benign prostate hypertrophy, Incontinence, Other HEENT: positive: Chronic hearing loss Psych: positive: Depression, Other Musculoskeletal: positive: Other (History of right femoral neck fracture status post hemiarthroplasty with subsequent fall in [place] IIIB periprosthetic fracture status post revision hemiarthroplasty.) Derm: positive: Other MRSA Hx?: No - Past Surgical History General: positive: Cholecystectomy, Appendectomy Ortho: positive: Hip replacement (right hip hemiarthroplasty with revision.) Cardiovascular: positive: CABG HEENT: positive: Cataracts Derm: positive: Debridement Social & Family Hx - Living Situation Living Arrangement: half-way Living Situation: With caregiver(s) - Social History Does the pt smoke?: No Smoking Status: Never smoker Does the pt drink ETOH?: No Does the pt have substance abuse?: No - POLST Patient has POLST: Yes POLST Status: DNR Meds/Allgy - Home Medications Home Medications: Ambulatory Orders Medication Instructions Recorded Confirmed Omeprazole [Prilosec] 20 mg PO DAILY 11/26/12 08/25/16 Atorvastatin Calcium [Lipitor] 40 mg PO QPM 07/15/15 08/28/16 Tamsulosin [Flomax] 0.8 tab 1730 07/22/16 08/28/16 Mirtazapine 7.5 mg PO DAILY 08/25/16 08/28/16 Sertraline [Zoloft] 50 mg PO DAILY 08/29/16 08/29/16 Acetaminophen [Tylenol] 650 - 975 mg PO Q4HR PRN #0 tablet 08/30/16 Bisacodyl Supp [Dulcolax Supp] 10 mg [place] Q12H PRN #0 supp 08/30/16 Bisacodyl [Dulcolax] 10 mg PO Q12H PRN #0 tablet 08/30/16 Calcium Carbonate [Tums (Calcium 1,000 mg PO BID tablet 08/30/16 Carbonate 500mg)] Enoxaparin [Lovenox] 40 mg SUBQ DAILY syringe 08/30/16 HYDROcod/ACETAM 5/325 [[place] 5/325] 1 tab PO Q4HR PRN 10 Days 08/30/16 Multivitamin W/Minerals [Theragran 1 tab PO DAILYWM tablet 08/30/16 M] Polyethylene Glycol 3350 [Miralax] 17 gm PO DAILY packet 08/30/16 Sertraline [Zoloft] 75 mg PO DAILY tablet 08/30/16 - Allergies Allergies/Adverse Reactions: Allergies Allergy/AdvReac Type Severity Reaction Status Date / Time No Known Drug Allergies Allergy Verified 06/24/16 06:25 Review of Systems - All Other Systems All Other Systems: reports: Reviewed and negative Exam - Vital Signs Reviewed Vital Signs: Yes - Physical Exam General Appearance: positive: Mild distress, Anxious Eyes Bilateral: positive: Normal inspection ENT: positive: ENT inspection nml Neck: positive: Nml inspection Respiratory: positive: No respiratory distress, Breath sounds nml Cardiovascular: positive: Regular rate & rhythm Peripheral Pulses: positive: 2+ Abdomen: positive: Non-tender, Nml bowel sounds, No distention. negative: Guarding Back: positive: Nml inspection Skin: positive: Color nml, No rash, Warm, Dry Extremities: positive: Other (left lower extremity slightly shortened and externally rotated. Tenderness to any manipulation about the hip.) Neurologic/Psychiatric: positive: Motor nml, Sensation nml, Disoriented to person, Disoriented to place, Disoriented to time Results - Lab Results Fish Bones: 08/28/16 13:41 - Diagnostic Imaging Results Diagnostic Imaging Results: positive: Final report reviewed Impression/Plan - Problem List Problem List: Impression: Left hip [place] 4 femoral neck fracture. Plan: To operating room for left hip hemiarthroplasty. 08/28/2016
== END 2016-08-30 14:20 | DRG 470 ==
LOC: MS 06:24
PROVIDERS: ADMIT Orthopaedic Surgery; ATTEND Orthopaedic Surgery
PROC: 0SRS01A Replacement of Left Hip Joint, Femoral Surface with Metal Synthetic Substitute, Uncemented, Open Approach (ICD-10-PCS; principal; 2016-08-28 07:30)
DX: S72.002A Fracture of unspecified part of neck of left femur, initial encounter for closed fracture (principal); W18.30XA Fall on same level, unspecified, initial encounter; F03.90 Unspecified dementia, unspecified severity, without behavioral disturbance, psychotic disturbance, mood disturbance, and anxiety; F98.0 Enuresis not due to a substance or known physiological condition; F32.9 Major depressive disorder, single episode, unspecified; I10 Essential (primary) hypertension; I25.10 Atherosclerotic heart disease of native coronary artery without angina pectoris; I73.9 Peripheral vascular disease, unspecified; Z91.81 History of falling; Y93.9 Activity, unspecified; Y92.9 Unspecified place or not applicable; Z86.711 Personal history of pulmonary embolism; Z79.891 Long term (current) use of opiate analgesic; Z79.899 Other long term (current) drug therapy; Z95.1 Presence of aortocoronary bypass graft; Z96.641 Presence of right artificial hip joint
CPT/HCPCS: 36415; 51701; 85014; 85018

== ENCOUNTER 2016-08-30 14:17 | Outpatient (CLI) | payer MEDICARE, OTHER | END 2016-08-30 14:18 | DX: S72.002A Fracture of unspecified part of neck of left femur, initial encounter for closed fracture (principal); X58.XXXA Exposure to other specified factors, initial encounter | CPT/HCPCS: A0425; A0428 ==

== ENCOUNTER 2016-09-02 08:00 | Outpatient (CLI) | payer MEDICARE, OTHER | END 2016-09-02 23:59 | DX: N39.0 Urinary tract infection, site not specified (principal) ==

== ENCOUNTER 2016-09-08 14:00 | Outpatient (CLI) | payer MEDICARE, OTHER | END 2016-09-08 14:01 | disposition home or self-care (01) | DX: I10 Essential (primary) hypertension (principal); D50.9 Iron deficiency anemia, unspecified; I25.9 Chronic ischemic heart disease, unspecified; S72.002D Fracture of unspecified part of neck of left femur, subsequent encounter for closed fracture with routine healing; L08.9 Local infection of the skin and subcutaneous tissue, unspecified ==

== ENCOUNTER 2016-09-11 08:53 | Outpatient (CLI) | payer MEDICARE, OTHER | END 2016-09-11 08:54 | disposition home or self-care (01) | DX: I73.9 Peripheral vascular disease, unspecified (principal); I10 Essential (primary) hypertension; D50.9 Iron deficiency anemia, unspecified; R70.0 Elevated erythrocyte sedimentation rate ==

== ENCOUNTER 2016-09-17 09:50 | Outpatient (CLI) | payer MEDICARE, OTHER | END 2016-09-17 09:51 | disposition home or self-care (01) | DX: N39.0 Urinary tract infection, site not specified (principal) ==

== ENCOUNTER 2016-11-19 10:20 | Outpatient (CLI) | payer MEDICARE, OTHER ==
[2016-11-19 11:13] LABS: BILIRUBIN,URINE NEGATIVE (NEGATIVE)
[2016-11-19 11:34] LABS: UR CULTURE IF IND INDICATED; WBC,URINE >25 /HPF (0-3)
== END 2016-11-19 10:21 | disposition home or self-care (01) ==
LOC: LAB.R 10:20
DX: N39.0 Urinary tract infection, site not specified (principal)
CPT/HCPCS: 81001; 87077; 87086

== ENCOUNTER 2016-12-04 19:30 | Outpatient (CLI) | payer MEDICARE, OTHER ==
[2016-12-04 22:42] LABS: BILIRUBIN,URINE NEGATIVE (NEGATIVE); PH,URINE 5.5 PH (5.0-7.5)
[2016-12-04 22:48] LABS: UA w/ MICROSCOPIC CHARGE YES
[2016-12-04 23:14] LABS: UR CULTURE IF IND INDICATED; WBC,URINE >25 /HPF (0-3)
== END 2016-12-04 19:31 | disposition home or self-care (01) ==
LOC: LAB.R 19:30
DX: R82.90 Unspecified abnormal findings in urine (principal)
CPT/HCPCS: 81001; 81003; 87077; 87086

== ENCOUNTER 2016-12-07 19:30 | Outpatient (CLI) | payer MEDICARE, OTHER | END 2016-12-07 19:31 | disposition home or self-care (01) | LOC: LAB 19:30 | PROVIDERS: ATTEND Family Medicine | DX: R82.90 Unspecified abnormal findings in urine (principal) | CPT/HCPCS: 81001; 81003; 87086 ==

== ENCOUNTER 2017-01-25 11:00 | Outpatient (CLI) | payer MEDICARE, OTHER ==
--- NOTE | 2017-01-25 23:23 | CONSULTATION NOTE ---
Palliative Care Consultation - Referral Referring Provider: Dr Den Barnett Time of Visit: 11:00 Referral setting: Intermediate Facility ([facility]) - Information Sources Records Reviewed: RN notes reviewed, Old records reviewed History obtained from: Patient (Unreliable historian, either agrees with everything or says "I don't know" "I don't care" or does not want to answer more questions), Family (Daughter Diana Deras), Caregiver (Nursing) Exam limitations: Clinical condition (Advanced dementia) - History of Present Illness Brief History of Present Illness: This is an 87-year-old gentleman who is very frail and has dementia with behavior disturbance. In June 2016 he fell and broke his right hip while he was living at [facility]. In July at [facility], he fell again and broke both hips including the one that had just been repaired. In August hemiarthroplasty surgery was performed on the left hip. He has been steadily declining this year. He has lost 10% of his weight since August. His normal weight was between 175 and 180 pounds, it is now about 135 pounds. He also reports increasing fatigue, and his functionality and mobility are declining -- he now ambulates by w/c and requires help with transfers. He has aggressive behaviors toward staff, refusing medications, notably around the time he broke his hips. His daughter notes that he is less aggressive now than previously, but his behaviors, though improved, have continued. He often refuses medication and can hit it away if staff provides encouragement. He frequently resists care due to not understanding why he needs it. His daughter reports he often has an "I don't care" attitude. During this assessment he responded "yes" to whatever the question was or "I don 't know." His meal intake is erratic, but diminished, and it appears he loses interest in eating. Treats that his daughter bring him which he used to "gobble up" he will now ignore. He is incontinent and on a Moreno catheter after failed voiding trials. He has a history of repetitive UTIs: 07/2016, 09/2016, two in 11/2016. The patient repeatedly stated that he feels tired. He has chronic foot pain and is given routine Tylenol and [place] for this. Medical/Surgical History - Past Medical History Cardiovascular: reports: None, Hypertension, Coronary artery disease, Peripheral Vascular Disease, Pulmonary embolism Respiratory: reports: None Neuro: reports: Dementia Endocrine/Autoimmune: reports: None GI: reports: None : reports: Incontinence, Other HEENT: reports: Chronic hearing loss Psych: reports: Depression, Other Musculoskeletal: reports: None Derm: reports: Other MRSA Hx?: No - Past Surgical History General: reports: Cholecystectomy, Appendectomy Ortho: reports: Other Cardiovascular: reports: CABG HEENT: reports: Cataracts Derm: reports: Debridement Medications/Allergies - Medications Home Medications: Ambulatory Orders Medication Instructions Recorded Confirmed Atorvastatin Calcium [Lipitor] 40 mg PO QPM 07/15/15 01/25/17 Mirtazapine 30 mg PO DAILY 08/25/16 01/25/17 Bisacodyl Supp [Dulcolax Supp] 10 mg [place] Q12H PRN #0 supp 08/30/16 01/25/17 Bisacodyl [Dulcolax] 10 mg PO Q12H PRN #0 tablet 08/30/16 Multivitamin W/Minerals [Theragran 1 tab PO DAILYWM tablet 08/30/16 01/25/17 M] Polyethylene Glycol 3350 [Miralax] 17 gm PO DAILY packet 08/30/16 01/25/17 Acetaminophen 650 mg PO DAILY 01/25/17 01/25/17 Acetaminophen [Tylenol] 650 mg PO Q4HR PRN 01/25/17 01/25/17 Alfuzosin HCl [Alfuzosin HCl ER] 10 mg PO DAILY 01/25/17 01/25/17 Calcium Carbonate [Tums (Calcium 1,000 mg PO Q4H PRN 01/25/17 01/25/17 Carbonate 500mg)] Gabapentin 300 mg PO DAILY 01/25/17 01/25/17 HYDROcod/ACETAM 5/325 [[place] 5/325] 1 tab PO BID 01/25/17 01/25/17 Medpass 2.0 1 ea PO TID 01/25/17 01/25/17 Ondansetron Odt [Zofran Odt] 4 mg PO Q6H PRN 01/25/17 01/25/17 Senna [Senokot] 17.2 mg PO DAILY 01/25/17 01/26/17 - Allergies Allergies/Adverse Reactions: Allergies Allergy/AdvReac Type Severity Reaction Status Date / Time No Known Drug Allergies Allergy Verified 06/24/16 06:25 Review of Systems - Constitutional Constitutional: reports: Fatigue ("I'm tired"), Poor appetite, Weight loss (10% since 08/07/2016. Now 134.7 lbs. Was 155.2 08/07/2016, and 160 lbs 07/09/2016.) - Ears, Nose & Throat Ears, Nose & Throat: reports: Hearing loss - Genitourinary Genitourinary: reports: Incontinence (Moreno catheter), Other (Recurrent UTIs) - Neurological Neurological: reports: Other - Other Findings Other Findings: Unable to obtain from patient due to dementia. Obtained from daughter, nursing, and EMR. Physical Examination - Vital Signs Temperature: 97.5 F Pulse Rate: 52 O2 Saturation: 98 Blood Pressure: 134/60 - Physical Exam General Appearance: positive: No acute distress Eyes Bilateral: positive: No lid inflammation ENT: positive: No signs of dehydration Neck: positive: Trachea midline Respiratory: positive: No respiratory distress, Other (Breath sounds diminished ; unable to hear breath sounds because he was not breathing deeply) Cardiovascular: positive: Regular rate & rhythm, No murmur Abdomen: positive: Non-tender, No organomegaly, Nml bowel sounds, No distention Extremities: positive: No pedal edema, Other (Hands are cold; feet are warm, though he complained they were cold when I took the blankets off.) Neurologic/Psychiatric: positive: Disoriented to place, Disoriented to time Palliative Care - POLST Patient has POLST: Yes POLST Status: DNR, Limited Interventions Pain: Comment (No pain reported.) Drowsiness: Comment (fatigue, "tired") Nausea: None Anxiety: None Dyspnea: None Anorexia: Moderate (4-6), Weight loss (10% since 08/07/2016. 155.2 lbs then, 134.7 lbs on 01/19/2017.O.) Feelings of wellbeing/Perceived Quality of Life: Comment (His complaint is that he is tired.) Performance Status: Previous level of function prior to this episode (hip fractures): Mobile with walker, good appetite. Current level of functioning: Wheelchair bound, requires two people for transfers, requires assistance with ADLs, worsening oral intake since the beginning of December, resistance to care and medications, impulsive. Palliative Care Performance status: 40% - Palliative Care Discussion: Surrogate decision maker: Daughter and DPRANDA Deras, Home (use this first) : [phone], Patient/Family understanding of the illness: Patient does not have insight into his illness. Daughter recognizes his significant decline, is not sure she is willing to forego hospitalization in the future. Provided anticipatory guidance about course of the disease, and options for transitioning to Hospice. Most important goals: Keeping him comfortable and pain free. Patient/Family concerns: Weight loss, declining functionality and his changing attitude of "I don't care." Results - Lab Results Lab and Imaging Results: : Arterial lower extremity duplex scan, bilateral: 1. Peripheral arterial disease popliteal bilaterally and distally. 2. Stenosis left GEROPSYCHOLOGIST and right distal SFA. 3. Bilateral atherosclerotic disease Impression and Recommendations - Palliative Care Impression: This is a frail 87-year-old gentleman with dementia and behavior disturbances who has rapidly declined since fracturing both hips in Jun and July of this year. His appetite and weight continue to decline, and he frequently refuses medicines and resists care. He has weight loss, progressive decline in functionality and mobility, and repetitive urinary infections, but his situation is not urgent and his daughter is not yet ready to forego possible treatment and transition to Hospice. We agreed I will follow up in two weeks. Recommendations/Counseling Done: 1. Dementia with behavior disturbances: Improved behaviors but continues to frequently refuse medications and resist care. Recently DC'd some medications, adjusted administration times since he takes meds more willingly around 5 pm. 2. Anorexia: No improvement. Meal intake is erratic. On Mirtazapine 30mg for depression and anorexia. Recommend smaller more frequent meals, provide high calorie snacks, add milk powder to shakes, milk and fluid for increased calories. Counselled daughter that this diminished appetite is an expected part of dementia and end of life process. 3. Urinary retention: On Moreno catheter. Bethanacol DC'd. 4. Advanced planning: Provided anticipatory guidance on course of disease, educated regarding EOL and Hospice. Patient frail but not in an urgent situation , agreed I will follow up in two weeks with her. Time Spent: 60 minutes with greater than 50% of this done in counseling regarding his dementia and anorexia, coordination of care with facility, and providing anticipatory guidance.
== END 2017-01-25 11:01 | disposition home or self-care (01) ==
LOC: PC 11:00
PROVIDERS: ATTEND Nurse Practitioner
DX: Z51.5 Encounter for palliative care (principal); R63.0 Anorexia; R33.9 Retention of urine, unspecified; Z96.0 Presence of urogenital implants; R63.4 Abnormal weight loss; Z98.1 Arthrodesis status; Z87.440 Personal history of urinary (tract) infections; M79.673 Pain in unspecified foot; F32.9 Major depressive disorder, single episode, unspecified; Z66 Do not resuscitate; Z99.3 Dependence on wheelchair; I73.9 Peripheral vascular disease, unspecified
CPT/HCPCS: 99306

== ENCOUNTER 2017-02-14 11:15 | Outpatient (CLI) | payer MEDICARE, OTHER ==
--- NOTE | 2017-02-14 20:36 | CONSULTATION NOTE ---
Palliative Care Follow Up - Referral Referring Provider: Dr Den Barnett Referral setting: [facility] ([facility]) - Information Sources Records reviewed: RN notes reviewed, Previous records reviewed History/Review of Systems obtained from: Family, Nursing Exam limitations: Clinical condition (Advanced dementia; unrousable from sleep) - History of Present Illness Update Brief HPI Update: This is an 87-year-old gentleman who is very frail and has dementia with behavior disturbance. In June 2016 he fell and broke his right hip while he was living at [facility]. In July, at [facility], he fell again and broke both hips, including the one that had just been repaired. In August 2016 hemiarthroplasty surgery was performed on the left hip. He continues to lose weight and exhibits failure to thrive. He weighs 126.8 lbs on Feb 12. He was 147.4 lbs in August, 160 lbs in July, and his daughter reports that he weighed around 170 lbs in June 2016, prior to his hip fracture. He is consistently eating poorly, although his daughter does report that this past week he was eating and drinking with uncharacteristic enthusiasm. His functionality continues to decline and he is largely bedridden. He has delusional outbursts, one example is shouting at his roommate, apparently thinking he was back in the [place]. He does consistently refuse medications, unfortunately often his pain medications, and he does show signs of pain, such as grimacing and crying out, when he is moved or repositioned by caretakers. He sleeps excessively throughout the day. Today during this assessment he didn' t open his eyes, and was unrousable for me as well as for one of the nurses. He was unresistant during most of my physical exam, but eventually he had enough and resisted auscultation of his respiratory system. Social History - Living Situation Living arrangement: correction Living Situation: With caregiver(s) (Daughter, Diana Deras lives locally. Also has another daughter who lives locally.) Medications/Allergies - Medications Home Medications: Ambulatory Orders Medication Instructions Recorded Confirmed Mirtazapine 30 mg PO DAILY 08/25/16 02/14/17 Bisacodyl Supp [Dulcolax Supp] 10 mg [place] Q12H PRN #0 supp 08/30/16 02/14/17 Polyethylene Glycol 3350 [Miralax] 17 gm PO DAILY packet 08/30/16 02/14/17 Calcium Carbonate [Tums (Calcium 1,000 mg PO Q4H PRN 01/25/17 02/14/17 Carbonate 500mg)] Gabapentin 300 mg PO DAILY 01/25/17 02/14/17 HYDROcod/ACETAM 5/325 [[place] 5/325] 1 tab PO Q4H PRN 01/25/17 02/14/17 Medpass 2.0 1 ea PO TID 01/25/17 02/14/17 Ondansetron Odt [Zofran Odt] 4 mg PO Q6H PRN 01/25/17 02/14/17 Senna [Senokot] 17.2 mg PO DAILY PRN 01/25/17 02/14/17 Lorazepam [Lorazepam Intensol] 0.5 mg PO Q4H PRN 02/14/17 02/14/17 Morphine Sulfate [Morphine Sulf 5 mg PO BID 02/14/17 02/14/17 Oral (Roxanol)] Morphine Sulfate [Morphine Sulf 5 mg PO Q4H PRN 02/14/17 02/14/17 Oral (Roxanol)] - Allergies Allergies/Adverse Reactions: Allergies Allergy/AdvReac Type Severity Reaction Status Date / Time No Known Drug Allergies Allergy Verified 06/24/16 06:25 Review of Systems - Constitutional Constitutional: reports: Poor appetite, Weight loss (14% weight loss since . Feb 12 2017: 126.8 lbs. August 2016: 147.4 lbs. Mach 2017 160 lbs. Family reports 170 lbs prior to hip fx in Jun 2016.) - Respiratory Respiratory: denies: Cough, SOB at rest - Musculoskeletal Musculoskeletal: reports: Other (signs of pain (verbally objects and grimaces) when being moved.) - Neurological Neurological: reports: General weakness - Other Findings Other Findings: Unable to obtain complete ROS due to dementia and non-responsiveness. Physical Exam - Vital Signs Temperature: 97.6 F Pulse Rate: 58 O2 Saturation: 94 Blood Pressure: 130/60 - Physical Exam General Appearance: positive: No acute distress, Lethargic, Nonresponsive (Did not open eyes during the entire visit. Cooperative at some points, resistant at others.) Palliative Care - POLST Patient has POLST: Yes POLST Status: DNR, Limited Interventions Pain: Pain unchanged Tiredness/Fatigue: Severe (7-10) Drowsiness/Sedation: Severe (7-10) Nausea: None Depression: Moderate (4-6) Anxiety: None Dyspnea: None Anorexia: Severe (7-10) (signficant weight loss. See ROS.) Sleep: Other (Sleeps most of time.) Performance Status: Current level of functioning: Bedridden, continued anorexia and functional decline, unable to do own ADLs, general failure to thrive, excessive sleeping. Palliative Care Performance Status: 20% - Palliative Care Discussion: Surrogate decision maker: Daughter and DPOA Diana Deras, home (use this first) : [phone]. . Patient/Family Understanding of the disease: Had a long discussion with Diana, his daughter, at his bedside. His eyes were closed the entire time. She reiterated her desire to keep him comfortable, and said she was not sure what to do. She did say the word "Hospice" was a scary word. I explained the purpose of Hospice and services it offers, that its goal is minimization of suffering and emphasizing life and supporting patient's and families in quality of life, and explained that comfort care is not "no care." She wanted to be sure that he could remain at [facility], and I confirmed that he could. She admitted she does not have anyone that she can speak to about her father's situation, and that she and her sister do not really discuss it. I offered to speak with her sister about the transition to Hospice, and at this time she feels that is not necessary, she will talk to her directly. As we talked, she did say she felt this would be the right thing to do for his comfort, and she appeared comfortable in accepting this transition to Hospice. She declined [employer] or pewter caster services at this time. Impression and Recommendations - Palliative Care Impression: This is a frail 87-year-old gentleman with dementia and behavior disturbances who has rapidly declined since fracturing both hips in June and July of this year. He continues to lose weight and decline functionally, frequently refusing medications, and resisting care. After reflection, his daughter has made the decision to transition him to hospice as he meets criteria medically and in terms of goals of care. Recommendations/Counseling Done: Dementia with behavior disturbances: Continues to refuse medications and resists care continuing mirtazapine for the time being hospice can make adjustments. Failure to thrive: Continued weight loss and functional decline. Continue mirtazapine for the time being. Continue MedPass and energy shakes. Pain: Start morphine solution 20 mg/mL bucally, both q4h prn and routinely BID , for pain. Titrate as needed Anxiety: Start lorazepam solution 2/mg/mL. Give 0.25 mL (0.5 mg) bucally q4h prn for agitation and restlessness. Advanced planning: Daughter feels a transition to hospice aligns with her and her father's goals of care for comfort and relief of suffering. Referred to hospice. POLST is currently DNR and limited interventions, will need to be updated. Time Spent: 60 minutes with greater than 50% of this done in counseling regarding dementia, failure to thrive, hospice services, and providing anticipatory guidance. Coordinated care with facility.
== END 2017-02-14 11:16 | disposition home or self-care (01) ==
LOC: PC 11:15
PROVIDERS: ATTEND Nurse Practitioner
DX: Z51.5 Encounter for palliative care (principal); F03.91 Unspecified dementia, unspecified severity, with behavioral disturbance; R62.7 Adult failure to thrive; F41.9 Anxiety disorder, unspecified; Z74.01 Bed confinement status; Z96.642 Presence of left artificial hip joint; Z87.81 Personal history of (healed) traumatic fracture; Z79.891 Long term (current) use of opiate analgesic; Z66 Do not resuscitate
CPT/HCPCS: 99310